=== PATIENT | female | born 1975 | race African-American/Black ===

== ENCOUNTER 2016-12-27 22:07 | Emergency (ER) | payer OTHER ==
[~2016-12-27] VITALS: Ht 162.6 cm; Wt 54.0 kg
[~2016-12-27 22:07] MED LIST: AZO; FOLIC ACID; PRENATAL VITAMIN
[2016-12-28] MEDS ORDERED: METHOCARBAMOL 500MG TABLET PO ONE (04:00)
[2016-12-28] MEDS ORDERED: KETOROLAC 60MG/2ML VIAL IM ONE (04:00)
[2016-12-28 05:25] VITALS: BP 118/71
== END 2016-12-28 06:45 | disposition home or self-care (01) ==
LOC: ER 22:07
DX: S16.1XXA Strain of muscle, fascia and tendon at neck level, initial encounter (principal); S20.219A Contusion of unspecified front wall of thorax, initial encounter; S00.83XA Contusion of other part of head, initial encounter; V43.52XA Car driver injured in collision with other type car in traffic accident, initial encounter; W22.11XA Striking against or struck by driver side automobile airbag, initial encounter; Y92.488 Other paved roadways as the place of occurrence of the external cause
CPT/HCPCS: 96372; 99283; J1885

== ENCOUNTER 2017-11-08 01:33 | Emergency (ER) | payer OTHER ==
[~2017-11-08] VITALS: Ht 160 cm; Wt 51.5 kg
[2017-11-08] MEDS ORDERED: TETANUS, DIPHTHERIA, PERTUSSIS VAC/PF 0.5ML (>7YR OLD) IM ONE (06:30)
[2017-11-08 06:49] VITALS: BP 116/74
[2017-11-08] MEDS ORDERED: ACETAMINOPHEN 325MG TABLET PO ONE (07:00)
== END 2017-11-08 08:30 | disposition home or self-care (01) ==
LOC: ER 01:38
DX: S61.411A Laceration without foreign body of right hand, initial encounter (principal); S11.91XA Laceration without foreign body of unspecified part of neck, initial encounter; F41.9 Anxiety disorder, unspecified; Z98.51 Tubal ligation status; X99.8XXA Assault by other sharp object, initial encounter; Y93.89 Activity, other specified; Y92.89 Other specified places as the place of occurrence of the external cause
CPT/HCPCS: 72040; 73130; 90471; 90715; 99284; Z7610

== ENCOUNTER 2022-10-31 19:48 | Emergency (ER) | payer OTHER ==
[~2022-10-31] VITALS: Ht 165.1 cm; Wt 55.0 kg
[2022-10-31 19:56] VITALS: BP 115/71
[2022-10-31] MEDS ORDERED: ACETAMINOPHEN 325MG TABLET PO ONE (21:15)
[2022-11-01] MEDS ORDERED: TOPUD PO (00:16)
== END 2022-11-01 00:32 | disposition home or self-care (01) ==
LOC: ER 19:48
DX: S09.90XA Unspecified injury of head, initial encounter (principal); R51.9 Headache, unspecified; M79.10 Myalgia, unspecified site; V49.49XA Driver injured in collision with other motor vehicles in traffic accident, initial encounter; Y93.89 Activity, other specified; Y92.89 Other specified places as the place of occurrence of the external cause; Y99.8 Other external cause status
CPT/HCPCS: 73030; 73120; 73590; 99284